=== PATIENT | male | born 1985 | race Caucasian/White ===

== ENCOUNTER → 2023-12-27 15:28 | Outpatient (BNVA) | payer MEDICARE, MEDICAID, SELFPAY | PROVIDERS: PCP Internal Medicine; Visit Provider Psychiatry & Neurology Neurology | DX: G47.10 Hypersomnia, unspecified (principal); G25.2 Other specified forms of tremor; R41.89 Other symptoms and signs involving cognitive functions and awareness; R06.83 Snoring | CPT/HCPCS: 99202 ==

== ENCOUNTER 2023-12-27 15:29 | Outpatient (AMB) | payer MEDICARE, MEDICAID, SELFPAY ==
--- NOTE | 2023-12-27 15:33 | A.OFFVIS_ITS ---
Vital Signs 12/27/23 15:35 Height 5 ft 7 in Weight 241 lb 8 oz BMI 37.8 BP 118/72 Blood Pressure Location Rt brachial Position Sitting Respiration 16 Pulse 119 H Pulse Source Pulse Oximeter Pulse Oximetry (%) 99 Oxygen Delivery Method Room Air Intake Visit Reasons: ENP: Chronic brain fog ? tremor - Confirmed Intake Note: Pt presents to the office for new pt evaluation for brain fog and tremors. Associate Professor Physician Required: No Allergies amoxicillin Allergy (Mild, Verified 12/27/23 15:38) Hives Medication List - Last Reconciled 12/27/23 by Ana Lanier MD albuterol sulfate 90 mcg/actuation 2 puffs inhalation Q6H PRN clonidine HCl 0.1 mg PO TID quetiapine 25 mg PO TID risperidone 3 mg PO DAILY simvastatin 40 mg PO DAILY trazodone 25 mg PO DAILY venlafaxine ER 150 mg PO DAILY venlafaxine ER 75 mg PO DAILY HPI Comments Details: 38y/o male comes for evaluation of cognitive issues. In 2018 he overdosed on Baclofen and other medications, he was admitted at [facility] for 3 months , was in [facility] for 2 ? months . He was transferred to psych unit and was stabilized. Since then he feels he is more impulsive, irritable, tremors in bilateral hands - action , memory issues. He has trouble with short term recall.He had trouble remembering address phone numbers, misplaces things often, trouble with conversations, has trouble with attention etc. He drives OK. He has trouble with remembering peoples names. He sees Dr. Lopes at [facility] and has counseling . Since then 2019 he had 5 more admissions at the psych unit with 4 more suicide attempts. He is currently [facility] [place]. He uses cannabis .No other drug use. After his discharge in November 2023 he was sent home but his reported that he was consuming alcohol and drugs so he is in [place] [facility]. Sleep is ok. He has loud snoring , frequent arousals. 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 [facility] Medical History (Updated 12/27/23 @ 16:08 by Ana Lanier MD) Coarse tremors Hypersomnia Snoring Cognitive change Drug overdose Suicidal behavior with attempted self-injury Depression Asthma Surgical History History of appendectomy H/O knee surgery Family History Mother HTN (hypertension) Social History Household Members: None Housing: Apartment Alcohol intake: never Tobacco use type: Cigar Years Smoked: once weekly x 2 years Substance Use Type: Marijuana Physical Exam Vital Signs: Last Vital Signs Pulse 119 H 12/27/23 15:35 Resp 16 12/27/23 15:35 BP 118/72 12/27/23 15:35 Pulse Ox 99 12/27/23 15:35 Oxygen Delivery Method Room Air 12/27/23 15:35 BMI result Body Mass Index 37.8 Const General: cooperative, healthy appearing and comfortable Nutritional Appearance: obese Orientation/consciousness: patient oriented x3 Eyes Pupils: Equal, round and reactive pupils present Neuro Other: Mallampatti grade 4 General: patient oriented x3, tone normal, moves all extremities and no focal motor deficits Cranial nerves: Yes Facial sensation intact/muscles of mastication intact, Yes Equal, round and reactive pupils present, Yes Bilaterally intact EOM present, Yes Nystagmus not present, Yes Normal facial strength present, Yes Midline tongue present, Yes Symmetric palate elevation present, Yes Ability to bilaterally rotate head present and Yes Ability to bilaterally elevate shoulders present Cognition (Neuro): normal cognition Gait exam (Neuro): Other gait observations present (mild difficulty with tandem) Motor exam (neuro): 5/5 motor strength present throughout and Normal motor muscle tone present throughout Deep tendon reflexes (DTR's): Right triceps reflex intensity grade: 1+, Left triceps reflex intensity grade: 1+, Rt Biceps (C5, C6): 1+, Left biceps reflex intensity grade: 1+, Right brachioradialis reflex intensity grade: 1+, Left brachioradialis reflex intensity grade: 1+, Right patellar reflex intensity grade: 2+ and Left patellar reflex intensity grade: 2+ Coordination: [id number] test normal Orientation What is the (year) (season) (date) (day) (month)?: year, season, date, day and month Where are we (state) (county) (town or city) (hospital) (floor)?: state, county, town or city, hospital/clinic and floor Registration Name of 3 unrelated objects clearly and slowly, then ask patient to repeat all 3 of them. (1st repeat determines score. Make sure they can repeat all three): object 1, object 2 and object 3 Attention & Calculation (CHOOSE ONE) Spell WORLD backwards (DLROW): 5 letters Recall Ask patient to repeat the 3 items from question #3.: object 1 and object 2 Language Show patient a wristwatch & ask what it is. Repeat for pencil.: watch and pencil Ask the patient to repeat the phrase 'No ifs, ands, or buts' after you.: correct Ask the patient to 'take a piece of paper with their right hand' 'fold paper in half' 'place paper on floor': take paper in right hand and place paper on floor Print the sentence 'CLOSE YOUR EYES' on a piece. If patient actually closes eyes then score.: followed written direction Give patient a blank piece of paper & ask to write a sentence. Score if it contains a noun & verb.: sentence contains subject and verb Ask patient to copy figure of intersecting pentagons exactly. Score if all 10 angles & 2 intersects are included.: all 10 angles present & 2 are intersected Score Score: 28 Results Reviewed Results Reviewed: MRI Brain- normal Assessment & Plan Assessment & Plan (1) Cognitive change: Code(s): R41.89 - Other symptoms and signs involving cognitive functions and awareness Category: Medical (2) Snoring: Code(s): R06.83 - Snoring Category: Medical (3) Hypersomnia: Code(s): G47.10 - Hypersomnia, unspecified Category: Medical (4) Coarse tremors: Code(s): G25.2 - Other specified forms of tremor Category: Medical Plan EEG to evaluate I will schedule him for home sleep test to r/o sleep F/u Psychiatry and psychotherapy Orders: Orders EEG electroencephalogram 12/27/23 R41.89 - Other symptoms and signs involving cognitive functions and awareness RT home sleep study 12/27/23 G47.10 - Hypersomnia, unspecified, R06.83 - Snoring Coding Level of Care Code New Pt Level 4 (40339) Diagnoses Cognitive change R41.89 Snoring R06.83 Hypersomnia G47.10 Coarse tremors G25.2
[2023-12-27 15:35] VITALS: BP 118/72; PULSE 119; RESP 16; O2SAT 99; BMI 37.8
== END 2023-12-27 16:14 | disposition home or self-care (01) ==
PROVIDERS: PCP Internal Medicine; Visit Provider Psychiatry & Neurology Neurology
DX: R41.89 Other symptoms and signs involving cognitive functions and awareness (principal); R06.83 Snoring; G47.10 Hypersomnia, unspecified; G25.2 Other specified forms of tremor
CPT/HCPCS: 99204

== ENCOUNTER 2024-02-26 13:15 | Outpatient (REF) | payer MEDICARE, MEDICAID, SELFPAY ==
--- NOTE | 2024-02-26 13:24 | EEG_ITS ---
FINDINGS: The waking background activity consists of a moderate voltage, 8 to 9 hertz posterior alpha frequency, intermixed anteriorly with low voltage fast frequencies. Photic stimulation and hyperventilation are without activation. No sleep stages are identified. No focal, lateralizing, or paroxysmal discharges are seen. IMPRESSION: This waking EEG is within normal limits. MD CARLYLE Grubbs/TATUM / [id number]
== END 2024-02-26 13:16 | disposition home or self-care (01) ==
LOC: HO.NEURO 13:15
PROVIDERS: PCP Internal Medicine; Visit Provider Psychiatry & Neurology Neurology
DX: R41.89 Other symptoms and signs involving cognitive functions and awareness (principal); G47.10 Hypersomnia, unspecified; R06.83 Snoring
CPT/HCPCS: 95806; 95816

== ENCOUNTER → 2024-04-11 20:30 | Outpatient (REF) | payer MEDICARE, MEDICAID, SELFPAY | LOC: HO.SL 20:30 | PROVIDERS: PCP Internal Medicine; Visit Provider Psychiatry & Neurology Neurology | DX: G47.10 Hypersomnia, unspecified (principal); R06.83 Snoring | CPT/HCPCS: 95810 ==

== ENCOUNTER → 2024-04-11 22:49 | Outpatient (BNV) | payer MEDICARE, MEDICAID, SELFPAY | PROVIDERS: PCP Internal Medicine; Visit Provider Psychiatry & Neurology Neurology | DX: R06.83 Snoring (principal); G47.10 Hypersomnia, unspecified | CPT/HCPCS: 95810 ==